=== PATIENT | female | born 1990 | race African-American/Black ===

== ENCOUNTER 2016-12-12 11:20 | Emergency (ER) | payer OTHER ==
[2016-12-12 11:26] VITALS: BMI 16.7
[2016-12-12] MEDS ORDERED: IBUPROFEN 400 MG TABLET (FP) PO ONE ×2 (11:56→12:03)
--- NOTE | 2016-12-12 12:27 | PDOC ---
History of Present Illness - General History Source: Patient - History of Present Illness Timing/Duration: reports: changing over time Abdominal Pain Onset Location: reports: LLQ Pain Radiation: reports: no radiation <Allen Quinteros Last Filed: 12/12/16 12:56> <Olena Celis - Last Filed: 12/13/16 10:35> - General Chief Complaint: Pain Stated Complaint: ABD PAIN Time Seen by Provider: 12/12/16 11:47 Past History - Past Medical History Suicide Attempt (Hx): No Other medical history: NONE - Psycho/Social/Smoking Cessation Hx Anxiety: No Suicidal Ideation: No Smoking Status: No Smoking History: Never smoked Have you smoked in the past 12 months: No Number of Cigarettes Smoked Daily: 2 Hx Alcohol Use: No Drug/Substance Use Hx: No Substance Use Type: None <Lyndon Quinteros Last Filed: 12/12/16 12:56> <Olena Celis - Last Filed: 12/13/16 10:35> - Past Medical History Allergies/Adverse Reactions: Allergies Allergy/AdvReac Type Severity Reaction Status Date / Time morphine Allergy Hives Verified 12/12/16 11:26 Home Medications: Ambulatory Orders NK [No Known Home Medication] 12/12/16 Review of Systems - Review of Systems Constitutional: No: Chills, Fever ABD/GI: No: Constipated, Diarrhea, Nausea, Vomiting : No: Dysuria, Discharge, Flank Pain, Hematuria <EgyptianLissaEliana Filed: 12/12/16 12:56> *Physical Exam - Vital Signs Last Vital Signs Temp Pulse Resp BP Pulse Ox 98.3 F 89 20 136/94 100 12/12/16 11:23 12/12/16 11:23 12/12/16 11:23 12/12/16 11:23 12/12/16 11:23 - Physical Exam General Appearance: Yes: Appropriately Dressed HEENT: positive: Normal Voice Neck: positive: Supple Respiratory/Chest: negative: Respiratory Distress Gastrointestinal/Abdominal: positive: Normal Bowel Sounds, Soft. negative: Tender, Distended, Guarding, Rebound Musculoskeletal: negative: CVA Tenderness Integumentary: positive: Dry, Warm Neurologic: positive: Fully Oriented, Alert, Normal Mood/Affect <Egyptian,Allen - Last Filed: 12/12/16 12:56> - Vital Signs Last Vital Signs Temp Pulse Resp BP Pulse Ox 98.1 F 97 H 16 116/70 100 12/12/16 13:17 12/12/16 13:17 12/12/16 13:17 12/12/16 13:17 12/12/16 13:17 <Olena Celis - Last Filed: 12/13/16 10:35> ED Treatment Course - LABORATORY CBC & Chemistry Diagram: 12/12/16 12:20 12/12/16 12:20 - Medications Given in the ED: ED Medications Discontinued Medications Generic Name Dose Route Start Last Admin Trade Name Freq PRN Reason Stop Dose Admin Ibuprofen 800 mg 12/12/16 11:56 12/12/16 12:19 Motrin - PO 12/12/16 11:57 800 mg ONCE ONE Administration <Allen Quinteros - Last Filed: 12/12/16 12:56> - LABORATORY CBC & Chemistry Diagram: 12/12/16 12:20 12/12/16 12:20 - ADDITIONAL ORDERS Additional order review: 12/12/16 12:20 RBC 4.38 MCV 90.2 MCHC 33.6 RDW 12.7 MPV 8.1 Neutrophils % 47.3 D Lymphocytes % 42.5 H D Monocytes % 8.2 Eosinophils % 1.5 Basophils % 0.5 - Medications Given in the ED: ED Medications Discontinued Medications Generic Name Dose Route Start Last Admin Trade Name Freq PRN Reason Stop Dose Admin Ibuprofen 800 mg 12/12/16 11:56 12/12/16 12:19 Motrin - PO 12/12/16 11:57 800 mg ONCE ONE Administration <Olena Celis - Last Filed: 12/13/16 10:35> Medical Decision Making - Medical Decision Making 12/12/16 12:21 25-year-old female, no significant history here with left lower quadrant pain. Pt reports intermittent LLQ pain since yesterday that improved this am but is still present. States she hears 'weird noises" coming from her abd. Denies n/v, change in BM, dysuria, vaginal discharge, f/c. Pt reports having similar pain w / "dry heaving" over a year ago and had extensive w/u including colonoscopy and pelvic US which were unremarkable per pt. See exam Recurrent LLQ pain or unclear etiology, ?gas Had neg w/u in the past Stable w/ benign abd today -will check basic labs and if unremarkable, anticipate dc w/ pmd f/u 12/12/16 12:56 Labs unremarkable. Pt continues to appear well and stable w/ benign abd on rpt exam. Will dc w/ PMD f/u 12/12/16 12:58 <Allen Quinteros - Last Filed: 12/12/16 12:56> *DC/Admit/Observation/Transfer <Allen Quinteros - Last Filed: 12/12/16 12:56> - Attestations Physician Attestion: I reviewed the case with the mid-level practitioner and agree with the mid- level practitioner's assessment, diagnosis and disposition. <Olena Celis - Last Filed: 12/13/16 10:35> Diagnosis at time of Disposition: Abdominal pain Qualifiers: Abdominal location: left lower quadrant Qualified Code(s): R10.32 - Left lower quadrant pain - Discharge Dispostion Disposition: HOME Condition at time of disposition: Good - Patient Instructions Printed Discharge Instructions: DI for Abdominal Pain-Adult Additional Instructions: The cause of your abdominal pain is unclear at this time. Please take motrin or tylenol for pain and follow up with your PMD
[2016-12-12 12:33] LABS: BASOPHIL 0.5 % (0-2.0); EOSINOPHIL 1.5 % (0-4.5); MCH 30.3 pg (25.7-33.7); MCHC 33.6 g/dl (32.0-36.0); MEAN CELL VOLUME 90.2 fl (80-96); MEAN PLT VOLUME 8.1 fl (7.5-11.1); NEUTROPHILS 47.3 % (42.8-82.8); PLATELET COUNT 204 K/MM3 (134-434); RDW 12.7 % (11.6-15.6); WHITE BLOOD COUNT 4.6 K/mm3 (4.0-10.0)
[2016-12-12 12:36] LABS: URINE APPEARANCE CLEAR; URINE BILIRUBIN NEGATIVE (NEGATIVE); URINE COLOR LTYELLOW; URINE GLUCOSE (UA) NEGATIVE (NEGATIVE); URINE KETONE TRACE (NEGATIVE); URINE LEUK ESTERASE NEGATIVE (NEGATIVE); URINE NITRITE NEGATIVE (NEGATIVE); URINE PROTEIN NEGATIVE (NEGATIVE); URINE UROBILINOGEN NEGATIVE E.U./dl (0.2-1.0)
[2016-12-12 12:41] LABS: URINE BLOOD 1+ (NEGATIVE)
[2016-12-12 12:42] LABS: ALBUMIN 4.1 g/dl (3.4-5.0); ANION GAP 10 (8-16); BILIRUBIN,TOTAL 0.8 mg/dL (0.2-1.0); CALCIUM 8.9 mg/dL (8.5-10.1); CO2 26 mmol/L (21-32); CREATININE 0.9 mg/dL (0.55-1.02); GLUCOSE,RANDOM 83 mg/dL (74-106); SGOT/AST 17 U/L (15-37); SGPT/ALT 18 U/L (12-78); TOT PROT 7.6 g/dl (6.4-8.2)
[2016-12-12 12:43] LABS: ALK PHOS 73 U/L (45-117)
[2016-12-12 13:01] LABS: URINE MUCUS RARE; URINE RBC 3 /hpf (0-3); URINE WBC 2 /hpf (3-5)
[2016-12-12 13:18] VITALS: BP 116/70; PULSE 97; TEMP 98.1
== END 2016-12-12 13:18 | disposition home or self-care (01) ==
LOC: JER 11:20
DX: R10.32 Left lower quadrant pain (principal)
CPT/HCPCS: 36415; 80053; 81003; 81015; 84703; 85025; 87491; 87591; 99282-25

== ENCOUNTER 2019-07-25 22:03 | Emergency (ER) | payer OTHER ==
[2019-07-25 22:11] VITALS: BMI 23.0
[2019-07-26] MEDS ORDERED: ACETAMINOPHEN 325 MG TABLET (FP) PO ONE (00:23)
--- NOTE | 2019-07-26 00:29 | PDOC ---
Attending Attestation - Resident Resident Name: ThierryAlvin - ED Attending Attestation I have performed the following: I have examined & evaluated the patient, The case was reviewed & discussed with the resident, I agree w/resident's findings & plan, Exceptions are as noted - HPI HPI: 07/26/19 00:29 28-year-old female who is had 2 episodes of vomiting today and has URI symptoms with nasal congestion, chills and cough - Physicial Exam PE: 07/26/19 00:29 28-year-old female who is 39 weeks and presents with URI symptoms chills 2 episodes of vomiting Had normocephalic atraumatic Neck is supple Lungs are clear to auscultation bilaterally CVS regular rate and rhythm S1-S2 Abdomen protuberant, 39 weeks Skin warm and dry Neuro alert and oriented x3, ambulatory - Medical Decision Making 07/26/19 00:30 1 para 0 Flu symptoms and influenza swab will be sent Patient given Tylenol 650 07/26/19 01:06 Flu swab is negative Patient is now being taken up to labor and delivery
[2019-07-26] MEDS ORDERED: ACETAMINOPHEN 325 MG TABLET (FP) ONE (00:30)
--- NOTE | 2019-07-26 00:46 | PDOC ---
History of Present Illness - General Chief Complaint: Cold Symptoms Stated Complaint: COLD SYMPTOMS Time Seen by Provider: 07/26/19 00:03 History Source: Patient Exam Limitations: No Limitations - History of Present Illness Initial Comments: 07/26/19 00:34 28 yo F with no past medical history 39 weeks GA presents to the emergency department with cold like symptoms that has been ongoing for 1 day. In addition , she has had 2 episodes of non billious non bloody vomiting. Endorses nasal congestion and cough. Denies the following: fevers, chills, SOB, chest pain, abdominal cramping, dysuria, hematuria, diarrhea, hematochezia, and leg pain/ swelling. allergies: morphine Past History - Past Medical History Allergies/Adverse Reactions: Allergies Allergy/AdvReac Type Severity Reaction Status Date / Time morphine Allergy Hives Verified 07/25/19 22:11 Home Medications: Ambulatory Orders NK [No Known Home Medication] 12/12/16 - Psycho Social/Smoking Cessation Hx Smoking Status: No Smoking History: Never smoked Have you smoked in the past 12 months: No Number of Cigarettes Smoked Daily: 2 Hx Alcohol Use: No Drug/Substance Use Hx: No Substance Use Type: None Review of Systems - Review of Systems Able to Perform ROS?: Yes Is the patient limited Turkmen proficient: No Constitutional: No: Chills, Diaphoresis, Fever, Weakness HEENTM: Yes: Nose Congestion. No: Eye Pain, Ear Pain, Nose Pain, Throat Pain, Mouth Pain Respiratory: Yes: Cough. No: Shortness of Breath, Hemoptysis Cardiac (ROS): No: Chest Pain, Lightheadedness, Palpitations, Syncope, Chest Tightness ABD/GI: Yes: Nausea, Vomiting. No: Constipated, Diarrhea, Poor Appetite, Poor Fluid Intake, Rectal Bleeding, Abdominal cramping, Tarry Stools : No: Burning, Dysuria, Hematuria Musculoskeletal: No: Back Pain, Joint Pain, Neck Pain Integumentary: No: Bruising, Erythema, Rash Neurological: No: Headache, Tingling, Ataxia Psychiatric: No: Change in Appetite Endocrine: No: Unexplained Weight Loss Hematologic/Lymphatic: No: Anemia *Physical Exam - Vital Signs Last Vital Signs Temp Pulse Resp BP Pulse Ox 99.1 F 102 H 18 112/66 96 07/25/19 22:06 07/25/19 22:06 07/25/19 22:06 07/25/19 22:06 07/25/19 22:06 - Physical Exam General Appearance: Yes: Nourished, Appropriately Dressed. No: Apparent Distress, Intoxicated HEENT: positive: EOMI, DODIE, Normal ENT Inspection, Normal Voice, Symmetrical, TMs Normal, Pharynx Normal, Nasal Congestion, Hearing Grossly Normal. negative : Pale Conjunctivae, Scleral Icterus (R), Scleral Icterus (L), Muffled/Hoarse voice, Pharyngeal Erythema, Tonsillar Exudate, Rhinorrhea, Sinus Tenderness, Excessive drooling Neck: positive: Trachea midline, Supple. negative: Tender, Lymphadenopathy (R) , Lymphadenopathy (L), Tender lateral, Tender midline Respiratory/Chest: positive: Lungs Clear, Normal Breath Sounds. negative: Chest Tender, Respiratory Distress, Accessory Muscle Use Cardiovascular: positive: Regular Rhythm, Regular Rate, S1, S2. negative: Systolic Murmur Gastrointestinal/Abdominal: positive: Normal Bowel Sounds, Soft, Other (fundus above umbilicus. no tenderness to palpation. gravid abdomen appropraite for GA) . negative: Tender Lymphatic: negative: Adenopathy Musculoskeletal: positive: Normal Inspection. negative: CVA Tenderness, Vertebral Tenderness Extremity: positive: Normal Capillary Refill, Normal Inspection, Normal Range of Motion. negative: Tender, Swelling, Calf Tenderness Integumentary: positive: Normal Color, Dry, Warm Neurologic: positive: Fully Oriented, Alert, Normal Mood/Affect ED Treatment Course - Medications Given in the ED: ED Medications Discontinued Medications Generic Name Dose Route Start Last Admin Trade Name Freq PRN Reason Stop Dose Admin Acetaminophen 650 mg 07/26/19 00:23 07/26/19 00:31 Tylenol - PO 07/26/19 00:24 650 mg ONCE ONE Administration Medical Decision Making - Medical Decision Making 28 yo F with no past medical history 39 weeks GA presents to the emergency department with cold like symptoms that has been ongoing for 1 day. In addition , she has had 2 episodes of non billious non bloody vomiting. Initial vitals: Initial Vital Signs Temp Pulse Resp BP Pulse Ox 99.1 F 102 H 18 112/66 96 07/25/19 22:06 07/25/19 22:06 07/25/19 22:06 07/25/19 22:06 07/25/19 22:06 Work up patient presents with flu like symptoms will test for flu and then will be sent to LD for fetus evaluation interventions: tylenol 650 mg. Laboratory Tests 07/26/19 00:30 Influenza A (Rapid) Negative Influenza B (Rapid) Negative Patient's flu negative sent to LD Discharge - Discharge Information Problems reviewed: Yes Clinical Impression/Diagnosis: Vomiting Condition: Good Disposition: HOME - Admission No - Additional Discharge Information Goals: discharge instructions go home and rest drink at least 6-8 glasses of water/day regular diet return to labor and delivery: if having regular contractions decrease movement rupture of membranes vaginal bleeding keep doctors appointment - Follow up/Referral Referrals: Freedom Grant MD [Staff Physician] - Bharath Clifford MD [Primary Care Provider] - - Patient Discharge Instructions Patient Printed Discharge Instructions: How to Avoid a Cold or Flu, DI for Viral Upper Respiratory Infection -- Adult Additional Instructions: Please follow up with your OBGYN physician within 1 week after discharge for follow up care and management. Please return to the emergency department if you have worsening symptoms or new concerns. Thank you., - Post Discharge Activity
[2019-07-26 03:14] VITALS: BP 111/71; PULSE 100; TEMP 99.5
== END 2019-07-26 02:55 | disposition home or self-care (01) ==
LOC: JERFT 22:03 → JER 22:03
DX: O99.89 Other specified diseases and conditions complicating pregnancy, childbirth and the puerperium (principal); J06.9 Acute upper respiratory infection, unspecified; Z3A.39 39 weeks gestation of pregnancy
CPT/HCPCS: 87804; 99283-25

== ENCOUNTER 2019-07-28 22:05 | Inpatient (IN) | payer OTHER ==
[2019-07-28] MEDS ORDERED: PROMETHAZINE HCL 25 MG/1 ML VIAL IVPB ONE (23:30)
[2019-07-28] MEDS: DEXTROSE 5%-LACTATED RINGERS 1,000 ML IV SCH (23:30)
[2019-07-28] MEDS ORDERED: BUTORPHANOL TARTRATE 1 MG/ML VIAL IVPB ONE (23:30)
[2019-07-28] MEDS ORDERED: PROMETHAZINE HCL 25 MG/1 ML VIAL ONE (23:57)
[2019-07-28] MEDS ORDERED: BUTORPHANOL TARTRATE 1 MG/ML VIAL ONE ×2 (23:57)
[2019-07-29 00:31] VITALS: BMI 23.0
[2019-07-29 00:36] LABS: BASO % 0.1 % (0-2.0); HEMATOCRIT 36.7 % (32.4-45.2); HEMOGLOBIN 12.6 GM/dL (10.7-15.3); LYMPH % 5.8 % (8-40); MCH 30.9 pg (25.7-33.7); MCHC 34.3 g/dl (32.0-36.0); MEAN CELL VOLUME 90.3 fl (80-96); MEAN PLT VOLUME 8.6 fl (7.5-11.1); MONO % 6.7 % (3.8-10.2); NEUT % 87.4 % (42.8-82.8); PLATELET COUNT 193 K/MM3 (134-434); RBC 4.06 M/mm3 (3.60-5.2); RDW 13.7 % (11.6-15.6); WHITE BLOOD COUNT 7.3 K/mm3 (4.0-10.0)
--- NOTE | 2019-07-29 00:51 | HP ---
Past Medical History - Primary Care Physician PCP:: Itzel Stover - Past Medical History ...: 1 ...Para: 0 ...Term: 0 ...: 0 ...Spon : 0 ...Induced : 0 ...Multiple Gestation: 0 ...LMP: 10/30/18 ... Weeks Gestation by Dates: 38.5 ...EDC by Dates: 08/06/19 ...EDC by Sono: 08/06/19 - Smoking History Smoking history: Never smoked Have you smoked in the past 12 months: No Aproximately how many cigarettes per day: 2 - Alcohol/Substance Use Hx Alcohol Use: No Home Medications - Allergies Allergies/Adverse Reactions: Allergies Allergy/AdvReac Type Severity Reaction Status Date / Time morphine Allergy Itching Verified 07/29/19 00:12 - Home Medications Home Medications: Ambulatory Orders Pnv No.121/Iron/Folic Acid 1 tab PO DAILY 07/29/19 Physical Exam - Maternity Vital Signs: Vital Signs Temperature 98.4 F 07/28/19 23:05 Pulse Rate 102 H 07/28/19 23:05 Respiratory Rate 20 07/28/19 23:05 Blood Pressure 131/79 07/28/19 23:05 O2 Sat by Pulse Oximetry (%) - Labs Lab Results: CBC, BMP 07/28/19 23:49
[2019-07-29 01:05] LABS: PROTHROMBIN TIME (PATIENT) 11.8 SEC (9.7-13.0)
[2019-07-29 01:08] LABS: ACTIVATED PTT 31.2 SECONDS (25.2-36.5); BLOOD UREA NITROGEN 8.6 mg/dL (7-18); CALCIUM 8.7 mg/dL (8.5-10.1); CREATININE 0.7 mg/dL (0.55-1.3)
[2019-07-29] MEDS: DEXTROSE 5%-LACTATED RINGERS 1,000 ML IV SCH (11:17)
[2019-07-29] MEDS ORDERED: NALOXONE HCL 0.4 MG/ML VIAL IVPUSH PRN (11:49)
[2019-07-29] MEDS ORDERED: LIDO 2%/EPI 1:200000 PRESRVFRE (20 ML SDVIAL) ONE (11:51)
[2019-07-29] MEDS ORDERED: FENTANYL/BUPIVACAINE/NS/PF - PCEA - 50 ML DISP.SYRIN EP ONE (11:52)
[2019-07-29] MEDS ORDERED: FENTANYL/BUPIVACAINE/NS/PF - PCEA - 50 ML DISP.SYRIN EP SCH (12:00)
[2019-07-29] MEDS ORDERED: ELECTROLYTE-148 SOLN 1,000 ML IV SCH (12:00)
--- NOTE | 2019-07-29 12:40 | HP ---
Past Medical History - Primary Care Physician PCP:: Freedom Grant - Admission Chief Complaint: 28yo P0 with at EGA 39w5d admitted with spont labor. 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: Alzheimer's, CVA, Dementia, Migraine, Multiple Sclerosis, Peripheral Neuropathy, Parkinson's, Seizure, Syncope, TIA, Vertigo, Other Cardiovascular: No: AFIB, Aneurysm, Aortic Insufficiency, Aortic Stenosis, CAD, CHF, Deep Vein Thrombosis, HTN, Hyperlipdemia, [place], Mitral Insufficiency, Mitral Stenosis, Murmur, Pulmonary Hypertension, Other Pulmonary: No: Asthma, Bronchitis, Cancer, COPD, O2 Dependent, Pneumonia, Previously Intubated, Pulmonary Embolus, Pulmonary Fibrosis, Sleep Apnea, Other Gastrointestinal: No: Ascites, Cancer, Constipation, Crohn's Disease, Diverticulitis, Diverticulosis, Esophageal Varices, Gastritis, GERD, GI Bleed, Hemorrhoids, Hiatal Hernia, Inflamatory Bowel Disease, Irritable Bowel Disease, Pancreatitis, Peptic Ulcer Disease, Ulcerative Colitis, Other Hepatobiliary: No: Cirrhosis, Cholelithiasis, Cholecystitis, Choledocholithiasis , Hepatitis A, Hepatitis B, Hepatitis C, Other Renal/: No: Renal Failure, Renal Inusuff, BPH, Cancer, Hematuria, Hemodialysis , Neurogenic Bladder, Renal Calculi, UTI, Other Reproductive: No: Ectopic , Endometriosis, Fibroids, PID, Polycystic Ovary Syndrome, Postmenopausal, Other ...: 1 ...Para: 0 ...Term: 0 ...: 0 ...Spon : 0 ...Induced : 0 ...Multiple Gestation: 0 ...LMP: 10/30/18 ... Weeks Gestation by Dates: 38.5 ...EDC by Dates: 08/06/19 ...EDC by Sono: 08/06/19 Heme/Onc: No: Anemia, B12 Deficiency, Bleeding Disorder, Cancer, Current Chemotherapy, Current Radiation Therapy, Hemochromatosis, Hypercoaguable State, Myeloproliferative Synd, Sickle Cell Disease, Sickle Cell Trait, Thrombocytopenia, Other Infectious Disease: No: AIDS, C-Diff, Herpes Zoster, HIV, MRSA, STD's, Tuberculosis, VREF, Other Psych: No: Addictions, Anxiety, Bipolar, Depression, Panic, Psychosis, Schizophrenia, Other Musculoskeletal: No: Bursitis, Chronic low back pain, Hemiparesis, Hemiplegia, Osteoarthritis, Paraplegia, Other Rheumatology: No: Fibromyalgia, Gout, Lupus, Rheumatoid Arthritis, Sarcoidosis, Vasculitis, Other ENT: No: Allergic Rhinitis, Sinusitis, Other Endocrine: No: [place]'s Disease, [place]'s Disease, Diabetes Insipidus, Diabetes Mellitus, Hyperparathyroidism, Hyperthyroidism, Hypothyroidism, Osteopenia, SIADH, Other Dermatology: No: Basal Cell, Cellulitis, Eczema, Melanoma, Psoriasis, Squamous Cell, Other - Past Surgical History Hx Myomectomy: No Hx Transabdominal Cerclage: No - Smoking History Smoking history: Never smoked Have you smoked in the past 12 months: No Aproximately how many cigarettes per day: 2 - Alcohol/Substance Use Hx Alcohol Use: No History of Substance Use: reports: None - Social History Usual Living Arrangement: Yes: With Significant Other Do you think of yourself as: Straight/Heterosexual ADL: Independent History of Recent Travel: No Home Medications - Allergies Allergies/Adverse Reactions: Allergies Allergy/AdvReac Type Severity Reaction Status Date / Time morphine Allergy Itching Verified 07/29/19 00:12 - Home Medications Home Medications: Ambulatory Orders Pnv No.95/Ferrous Fum/Folic AC [ Vitamin Tablet] 1 each PO DAILY Family Medical History Family History: Denies Review of Systems - Review of Systems Constitutional: reports: No Symptoms Eyes: reports: No Symptoms HENT: reports: No Symptoms Neck: reports: No Symptoms Cardiovascular: reports: No Symptoms Respiratory: reports: No Symptoms Gastrointestinal: reports: No Symptoms Genitourinary: reports: No Symptoms Breasts: reports: No Symptoms Reported Musculoskeletal: reports: No Symptoms Integumentary: reports: No Symptoms Neurological: reports: No Symptoms Endocrine: reports: No Symptoms Hematology/Lymphatic: reports: No Symptoms Psychiatric: reports: No Symptoms Pain Intensity: 0 (s/p epidural) Physical Exam - Maternity Vital Signs: Vital Signs Temperature 98.7 F 07/29/19 11:00 Pulse Rate 78 07/29/19 12:30 Respiratory Rate 20 07/29/19 12:30 Blood Pressure 144/79 07/29/19 12:30 O2 Sat by Pulse Oximetry (%) 100 07/29/19 12:30 Constitutional: Yes: Well Nourished, No Distress, Calm Eyes: Yes: WNL, Conjunctiva Clear, EOM Intact HENT: Yes: WNL, Atraumatic, Normocephalic Neck: Yes: WNL, Supple, Trachea Midline Cardiovascular: Yes: WNL, Regular Rate and Rhythm Lungs: Clear to auscultation, Normal air movement Breast(s): Yes: WNL - Abdominal Exam/OB Fundal Height: 40 Number of Fetuses: Single Presentation: Vertex Contractions: Yes Regularity: Regular Intensity: Mild/Mod Monitor Mode: External Heart Rate (range): 140 Heart Rate Location: Midline Category: II Accelerations: Non-Uniform Decelerations: Variable - Vaginal Exam/OB Vaginal Bleediing: No Speculum Exam: No Dilatation (cm): 7 Effacement (%): 80 Amniotic Membrane Status: Ruptured (AROM) Amniotic Fluid: Yes: Clear Presentation: Vertex/Position Station: 0 - Physical Exam Musculoskeletal: Yes: WNL Extremities: Yes: WNL Edema: No Integumentary: Yes: WNL Deep Tendon Reflex Grade: Normal +2 ...Motor Strength: WNL Psychiatric: Yes: WNL, Alert, Oriented - Labs Lab Results: CBC, BMP 07/28/19 23:49 07/28/19 23:49 Hemorrhage Risk Assessment - Risk Factors Medium Risk Factors: Yes: None High Risk Factors: Yes: None Risk Score: 1 Risk Level: Medium Risk Imaging - Results Ultrasound: Report Reviewed Assessment/Plan 28yo P0 with at EGA 39w5d admitted with spont labor. Fetus with Category II tracing, occasional variable decels noted; however, moderate variability and accels are also present. Labor is progressing in active phase. Plan to monittor labor. Oxygen by mask given to pt and position changes.
[2019-07-29] MEDS ORDERED: LIDOCAINE HCL 1% PRESERVATIVE FREE - 30ML VIAL ONE (13:30)
[2019-07-29] MEDS ORDERED: OXYTOCIN 20 UNITS in 0.9% NS 20 UNIT/1,000 ML INFUS.BAG IV ONE (13:30)
[2019-07-29] MEDS ORDERED: OXYTOCIN 30 UNITS in 0.9% NS 30 UNIT/500 ML INFUS.BAG IVPB ONE (15:37)
[2019-07-29] MEDS ORDERED: WITCH HAZEL 50% (TUCKS) 40 PAD/JAR PAD TP PRN (16:23)
[2019-07-29] MEDS ORDERED: BISACODYL 10 MG SUPP.RECT RC PRN (16:23)
[2019-07-29] MEDS ORDERED: BENZOCAINE 20% 57 GM BOTTLE TP PRN (16:23)
[2019-07-29] MEDS ORDERED: METHYLERGONOVINE MALEATE 0.2 MG/1 ML AMP IM PRN (16:23)
[2019-07-29] MEDS ORDERED: BENZOCAINE 28 GM HEMORRHOIDAL OINTMENT TP PRN (16:23)
[2019-07-29] MEDS ORDERED: OXYTOCIN 20 UNITS in 0.9% NS 20 UNIT/1,000 ML INFUS.BAG IV SCH (16:30)
[2019-07-29] MEDS: IBUPROFEN 600 MG TABLET (FP) PO PRN (23:45)
[2019-07-29] MEDS: ACETAMINOPHEN 325 MG TABLET (FP) PO PRN (23:46)
[2019-07-30 07:53] LABS: BASO % 0.2 % (0-2.0); EOS % 0.1 % (0-4.5); HEMATOCRIT 27.3 % (32.4-45.2); HEMOGLOBIN 9.5 GM/dL (10.7-15.3); LYMPH % 19.3 % (8-40); MCH 31.4 pg (25.7-33.7); MCHC 34.8 g/dl (32.0-36.0); MEAN CELL VOLUME 90.2 fl (80-96); MONO % 9.9 % (3.8-10.2); NEUT % 70.5 % (42.8-82.8); PLATELET COUNT 171 K/MM3 (134-434); RBC 3.02 M/mm3 (3.60-5.2); RDW 13.7 % (11.6-15.6)
[2019-07-30] MEDS: PRENATAL VITAMINS W/ FOLIC ACID TABLET (FP) PO SCH (09:21)
[2019-07-30] MEDS ORDERED: ENOXAPARIN NA (PORCINE) 30 MG/0.3 ML DISP.SYRIN SQ SCH (10:00)
[2019-07-30] MEDS: IBUPROFEN 600 MG TABLET (FP) PO PRN (18:48)
[2019-07-30] MEDS: ACETAMINOPHEN 325 MG TABLET (FP) PO PRN (18:49)
--- NOTE | 2019-07-30 20:35 | PN ---
Post Progress Note - Subjective Subjective: No complaints. Doing well. Post Day: 1 Type of Delivery: Vital Signs: Vital Signs Temperature 97.7 F 07/30/19 13:00 Pulse Rate 92 H 07/30/19 13:00 Respiratory Rate 18 07/30/19 13:00 Blood Pressure 113/63 07/30/19 13:00 O2 Sat by Pulse Oximetry (%) 100 07/29/19 15:30 Breast Exam: Yes: Soft Uterus: Yes: Fundus Firm, Fundus below umbilicus, Non-tender Abdomen/GI: Yes: Abdomen soft, Tolerating PO Lochia: Yes: Rubra Lochia, amount: Small Extremities: Yes: Calves non-tender Perineum: Yes: Intact Activity: Ambulating - Labs Labs: CBC WBC 10.0 K/mm3 (4.0-10.0) 07/30/19 07:11 RBC 3.02 M/mm3 (3.60-5.2) L 07/30/19 07:11 Hgb 9.5 GM/dL (10.7-15.3) L 07/30/19 07:11 Hct 27.3 % (32.4-45.2) L D 07/30/19 07:11 MCV 90.2 fl (80-96) 07/30/19 07:11 MCH 31.4 pg (25.7-33.7) 07/30/19 07:11 MCHC 34.8 g/dl (32.0-36.0) 07/30/19 07:11 RDW 13.7 % (11.6-15.6) 07/30/19 07:11 Plt Count 171 K/MM3 (134-434) 07/30/19 07:11 MPV 8.0 fl (7.5-11.1) 07/30/19 07:11 Absolute Neuts (auto) 7.0 K/mm3 (1.5-8.0) 07/30/19 07:11 Neutrophils % 70.5 % (42.8-82.8) 07/30/19 07:11 Lymphocytes % 19.3 % (8-40) D 07/30/19 07:11 Monocytes % 9.9 % (3.8-10.2) 07/30/19 07:11 Eosinophils % 0.1 % (0-4.5) D 07/30/19 07:11 Basophils % 0.2 % (0-2.0) 07/30/19 07:11 Nucleated RBC % 0 % (0-0) 07/30/19 07:11 Assessment/Plan 28yo p1 s/p doing well, stable, afebrile. Asymptomatic for anemia. care instructions reviewed. Continue routine care. Ambulation encouraged Discharge instruction reviewed.
--- NOTE | 2019-07-30 20:39 | DS ---
Physical Exam-SPOOL SALVAGER Vital Signs: Vital Signs Temperature 97.7 F 07/30/19 13:00 Pulse Rate 92 H 07/30/19 13:00 Respiratory Rate 18 07/30/19 13:00 Blood Pressure 113/63 07/30/19 13:00 O2 Sat by Pulse Oximetry (%) 100 07/29/19 15:30 Constitutional: Yes: Well Nourished, No Distress, Calm Eyes: Yes: WNL, Conjunctiva Clear, EOM Intact HENT: Yes: WNL, Atraumatic, Normocephalic Neck: Yes: WNL, Supple, Trachea Midline Cardiovascular: Yes: WNL, Regular Rate and Rhythm Respiratory: Yes: WNL, Regular, CTA Bilaterally Gastrointestinal: Yes: WNL, Normal Bowel Sounds, Soft ...Rectal Exam: Yes: Deferred Renal/: Yes: WNL External Genitalia: Yes: Normal ....Post : Yes: Uterus firm, Uterus non-tender, Slight lochia rubra Breast(s): Yes: WNL Musculoskeletal: Yes: WNL Extremities: Yes: WNL Edema: No Integumentary: Yes: WNL Neurological: Yes: WNL, Alert, Oriented ...Motor Strength: WNL Psychiatric: Yes: WNL, Alert, Oriented Labs: CBC, BMP 07/30/19 07:11 07/28/19 23:49 Delivery - Delivery Vaginal Delivery: No Problems, Spontaneous Type of Anesthesia: Epidural Episiotomy/Laceration: None EBL (cc): 300 Delivery, Single - Stages of Labor Date 1st Stage Initiatied: 07/28/19 Time 1st Stage Initiated: 21:00 Date 2nd Stage Initiated: 07/29/19 Time 2nd Stage Initiated: 14:45 Date of Delivery: 07/29/19 Time of Delivery: 16:07 Time Placenta Delivered: 16:12 Placenta: Yes: Spontaneous, Normal Configuration - Condition of Regulatory 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[employer] Present: [place]: Keshawn Kramer Infant Gender: Male Weight: 2.977 kg Position: Right, OA Total Hours ROM (Hrs/Mins): 3hr 58min - 1 Minute Total Score: 9 5 Minutes Total Score: 9 - [place] Feeding Plan Initial Plan: Exclusive throughout hospitalization Benefits of Exclusively reinforced: Yes Remarks - Remarks Remarks: Nuchal cord x 1 and cord around body x 1 Discharge Summary Problems reviewed: Yes Reason For Visit: LABOR ADMIT Spont labor Procedures: Principal: Hospital Course: Normal recovery Health Concerns: Anemia Plan of Treatment: vitiamins, iron Condition: Good - Instructions Diet, Activity, Other Instructions: Physical activity Resume your normal everyday activity as tolerated no heavy lifting or exercise until seen by your surgeon. You may walk unlimited adrian of and climb stairs. You may resume driving the car when you feel safe and comfortable behind the wheel. No sexual activity as instructed. Wound care If you have a bandage, leave it on, and keep dry for 48-72 hours. After that time discard the outer bandage. If they are tapes on the skin under the out of bandage leave them in place. They will peel off in the next 7 to 10 days. Do Not Peel them off. You may shower the day after surgery. If there are tapes present on the skin, you may shower over them. Diet There are no dietary restrictions. Eat healthy, high-fiber foods. Drink 6 to 8 glasses of liquid each day. This will assist in keeping your bowels are regular. Pain management You may take Tylenol or acetaminophen or Ibuprofen (for example, Motrin, Advil etc.) from my pain prescription medication is ordered should be taken as prescribed for moderate to severe pain. Call MD for any of the following: Severe pain not relieved by medication Fever of 101 or higher Excessive bleeding or drainage on dressing Inability to urinate Referrals: Freedom Grant MD [Staff Physician] - Disposition: HOME - Home Medications Comprehensive Discharge Medication List: Ambulatory Orders Pnv No.95/Ferrous Fum/Folic AC [ Vitamin Tablet] 1 each PO DAILY Prescription Drug Monitoring Program (I-STOP) results: I-STOP not reviewed
[2019-07-30] MEDS ORDERED: SENNOSIDES/DOCUSATE COMBO (SENNA PLUS) TABLET (UD) PO PRN (22:00)
[2019-07-31] MEDS: PRENATAL VITAMINS W/ FOLIC ACID TABLET (FP) PO SCH (10:58)
[2019-07-31 15:24] VITALS: BP 102/61; PULSE 73; TEMP 97.6
== END 2019-07-31 17:00 | disposition home or self-care (01) | DRG 560 ==
LOC: JDEL 22:05 → JLDR 23:05 → J3W 07-29 18:11
PROVIDERS: ADMIT Obstetrics & Gynecology; ATTEND Obstetrics & Gynecology
PROC: 10E0XZZ Delivery of Products of Conception, External Approach (ICD-10-PCS; principal; 2019-07-29)
DX: O99.02 Anemia complicating childbirth (principal); O69.82X0 Labor and delivery complicated by other cord entanglement, without compression, not applicable or unspecified; Z3A.39 39 weeks gestation of pregnancy; Z37.0 Single live birth
CPT/HCPCS: 36415; 36600; 59409; 80048; 82803; 85025; 85461; 85610; 85730; 86593; 86850; 86900; 86901